=== PATIENT | female | born 1970 | race Caucasian/White ===

== ENCOUNTER 2018-03-23 16:00 | Outpatient (RCR) | payer OTHER ==
[~2018-03-23 16:00] MED LIST: ASPI-1471 PO; CALC600T63 PO; CHOL100052 PO; DIAZ-305 PO; IBUP800T37 PO; LETPT PO; LEUP3.753 IM; OMEG100032 PO; OXYC-865 PO; TAMO20TA24 PO
[2018-03-23 16:05] VITALS: BP 114/81
[2018-03-23] MEDS ORDERED: EXEM25TA4 PO (16:08)
--- NOTE | 2018-03-23 19:31 | ONCOLOGY FOLLOW UP NOTE ---
EVENT DATE: March 23, 2018 DIAGNOSIS Left breast cancer. CHIEF COMPLAINT Patient is here today for followup of her left breast cancer. ONCOLOGY HISTORY The patient is a 47-year-old female, pre-menopausal, at presentation with palpable lump in the left breast and left axilla. DIAGNOSTIC EVALUATION 1. On May 11, 2012, the patient had a bilateral diagnostic mammogram which showed 3.9 x 2.2 cm left breast mass. 2. Ultrasound of the left breast did reveal 4.2 x 2 x 1.8 cm irregularity marginated hypoechoic mass with acoustic shadowing at the 2.5 position of the left breast. There were numerous calcifications. There was also 4.2 cm in the left axilla. PROCEDURES 1. Left breast biopsy done on August 10, 2012. 2. Left axillary fine needle aspiration biopsy [place] August 17, 2012. PATHOLOGY Positive for invasive, poorly differentiated ductal carcinoma, ER positive, MI positive, HER2/sybil negative, Q67 of 22%. Fine needle aspiration of the left axillary lymph node came back positive for metastatic ductal carcinoma of the breast. STAGING WORKUP 1. CT of chest, abdomen and pelvis done on August 11, 2012 showed large left breast mass with at least 3 suspicious lymph nodes in the left axillary area. No evidence of systemic metastasis. 2. MRI of the brain done on August 18, 2012 came back negative for metastasis. STAGE Stage IIIA ([id number]). TREATMENT 1. Neoadjuvant chemotherapy with dose dense AC regimen with Adriamycin and cyclophosphamide received between August 17, 2012 through September 27, 2012. 2. The patient started weekly Taxol for twelve cycles between October 12, 2012 through December 29, 2012. 3. The patient started adjuvant hormonal therapy with tamoxifen on January 08, 2013. 4. The patient received also adjuvant radiation therapy. 5. The patient started treatment with Lupron shots started near 2013 because of the resumption of her periods. 6. The patient started treatment with Femara April 17, 2015, which was stopped on December 26, 2015 because of musculoskeletal pain. 7. The patient started treatment with Aromasin 25 mg daily December 2015. HISTORY OF PRESENT ILLNESS Patient is here today for follow up of her left breast cancer on Aromasin adjuvant hormonal therapy. Patient is really doing very well currently. She has some hot flashes sometimes which are getting better. She has also some pain in her wrists from arthritis. PAST MEDICAL HISTORY 1. Herpes zoster. 2. Recurrent yeast infections. PAST SURGICAL HISTORY 1. section times two. 2. Tonsillectomy as a child. SOCIAL HISTORY The patient is . She has two children. She has no history of alcohol, tobacco or drug abuse. She is a professor at the [employer]. FAMILY HISTORY Maternal great-grandmother had breast cancer at a very old age. Maternal great- aunt had breast cancer at old age. Grandfather had bladder cancer at age 90. ALLERGIES No known drug allergies. She does have allergies to CASHEWS and PISTACHIOS. MEDICATIONS 1. Lupron Depot 2.75 mg intramuscularly every month. 2. Aspirin 81 mg daily. 3. [place] 3 fatty acid 1000 mg daily. 4. Calcium carbonate 600 mg daily. 5. Vitamin D3 at 1000 units daily. REVIEW OF SYSTEMS CONSTITUTIONAL: Patient has occasional hot flashes. HEENT: Ears: No tinnitus or hearing problem. Nose: No nasal discharge or epistaxis. Throat: No sore throat or mouth ulcers. Eyes: No diplopia or visual changes. RESPIRATORY: No shortness of breath. No cough, expectoration or hemoptysis. CARDIOVASCULAR: No chest pain, orthopnea, or paroxysmal nocturnal dyspnea (PND) . No edema. No palpitations. GASTROINTESTINAL: No nausea or vomiting. No diarrhea or constipation. No change in bowel movements. No heartburn or swallowing difficulties. No abdominal pain. No jaundice. No hematemesis, melena or rectal bleeding. GENITOURINARY: No hematuria or dysuria. MUSCULOSKELETAL: She has pain in her wrists. NEUROLOGICAL: No tingling or numbness in the hands or feet. No headaches or convulsions. HEMATOLOGIC/LYMPHATIC: No bleeding or easy bruising. No weakness or fatigue. No enlarged lymph nodes. SKIN: No skin rash or lumps. PSYCHIATRIC: No anxiety or depression. PHYSICAL EXAMINATION GENERAL: Looks stable. Well-developed, well-nourished, and in no acute distress. VITAL SIGNS: Blood pressure 114/81, pulse 68 per minute, respirations 16 per minute, temperature 96.4, pulse ox 97% on room air. HEENT: Head: Atraumatic. No sinus tenderness to palpation. Eyes: No icterus or conjunctivitis. Mouth and throat: No oral thrush or mucositis. NECK: Supple. No cervical or supraclavicular lymphadenopathy. LUNGS: Clear to auscultation and percussion bilaterally. HEART: Regular rate and rhythm. No gallops, murmurs, clicks or rubs. ABDOMEN: Soft and lax. No tenderness. No hepatosplenomegaly. No masses. EXTREMITIES: No cyanosis, clubbing or edema. LYMPHATICS: No peripheral lymphadenopathy. NEUROLOGICAL: Conscious, alert and oriented times three. No focal motor or sensory deficits. PSYCHIATRIC: Mood and affect appear normal. SKIN: No skin rash, bruise or purpuric eruption. ASSESSMENT Stage IIIa (T3 N1 M0) left breast invasive ductal carcinoma status post left breast biopsy, fine needle aspiration biopsy of the left axillary lymph node done August 12, 2012 and August 17, 2012 respectively. Staging workup with CT chest, abdomen and pelvis and MRI of the brain came back negative for systemic metastasis. Tumor was ER/MI positive, HER2/sybil negative. Patient received neoadjuvant chemotherapy for four cycles of dose-dense AC with Adriamycin and cyclophosphamide, received between August 17, 2012 through September 27, 2014. This was followed by 12 weekly courses of Taxol given between October 12, 2014 through December 29, 2014. She received adjuvant radiation therapy after that. She started adjuvant hormonal therapy with tamoxifen December. Lupron was added July 2014 because of recurrence of her periods and estrogen surge at that time. Her treatment was switched to Lupron shots monthly and Femara 2.5 mg started April 17, 2015. She continued on the treatment until she had musculoskeletal pain from Femara, so Femara was discontinued and the patient started Aromasin November 2015. She was maintained on Aromasin until she got her period, and she checked her hormonal level which came back in the premenopausal level, so the patient stopped Aromasin and started to take tamoxifen. Patient decided to go for bilateral oophorectomy which was done in 2015 and the patient used Aromasin after that. She is really doing very well currently. I am planning to see her again in six months with CBC, Chem panel and CA 27-29. Generally speaking she is really doing very well. . PLAN 1. Continue followup. 2. Continue Aromasin 25 mg daily for a total of five years. 3. Patient to return in six months with CBC, chem panel, CA 27-29. 4. Patient to contact us for any new concerns or complaints. [facility]
== END 2018-04-28 10:21 | disposition home or self-care (01) ==
LOC: ONC 16:00
PROVIDERS: ATTEND Internal Medicine Hematology
DX: C50.912 Malignant neoplasm of unspecified site of left female breast (principal); Z17.0 Estrogen receptor positive status [ER+]; M79.1 Myalgia; N95.1 Menopausal and female climacteric states; I89.0 Lymphedema, not elsewhere classified; Z79.818 Long term (current) use of other agents affecting estrogen receptors and estrogen levels; Z79.82 Long term (current) use of aspirin; Z79.811 Long term (current) use of aromatase inhibitors
CPT/HCPCS: 99212